=== PATIENT | female | born 1955 | race Caucasian/White ===

== ENCOUNTER 2025-03-11 08:02 | Outpatient (CLI) | payer OTHER, SELFPAY ==
--- NOTE | 2025-03-11 08:05 | US_ITS ---
PROCEDURE: THORACENTESIS W US 03/11/2025 REASON FOR EXAM: Right pleural effusion. Diagnostic thoracentesis. TECHNIQUE: THORACENTESIS W US COMPARISON: No relevant prior. FINDINGS: Small right apparently septated pleural effusion. Informed consent was obtained. The patient was prepped and draped in the usual sterile fashion. Anesthetic: Lidocaine 2% was utilized for local anesthesia. Catheter: 5F, 10 cm in length [id number] Centesis Catheter. Drained fluid: 2 mL. Fluid color: Red. Fluid clarity: Bloody. Fluid disposition: Sent to laboratory. US/Thoracentesis W US IMPRESSION: Successful diagnostic right thoracentesis of a scant amount of bloody fluid sen t to the laboratory for testing. Reading Location: [place] [id number]
--- NOTE | 2025-03-11 08:43 | FLU_PTH ---
PATIENT: GAUDENCIO GUZMAN LOC: [facility]#:[id number] AGE/SX: 69/F ROOM: RE03/11/[address]: Dr. Keegan Jerome MD : 1955 BED: DIS: 03/11/2025 SPEC #: [id number] RECD: 03/11/25 09:24 STATUS: ENT REQ #: [id number] ALEXANDRO: 03/11/25 08:[address]: Keegan Jerome V DEPT: CYTOLOGY RECD BY: Rosie Cheung ENTERED: 03/11/25 13:52 SP TYPE: Fluid OTHR DR: KHUSHI Koroma Tissues: Pleural fluid, NOS Procedures: Special Stain Group II Surgery Specimen Level IV Cytospin Fluid
[2025-03-11] MEDS: Lidocaine 2% (20 ml mdv) 20 ML Vial INFILT (08:48)
--- NOTE | 2025-03-11 09:10 | RAD_ITS ---
PROCEDURE: CHEST INSP/EXP 2 VIEW N/A REASON FOR EXAM: POST THORACENTESIS TECHNIQUE: Procedure Code: [id number] Modality: DX Procedure: CHEST INSP/EXP 2 VIEW COMPARISON: Ultrasound dated 03/11/2025 FINDINGS: AP inspiration and expiration chest images show no signs of pneumothorax following right thoracentesis. Patchy infiltrates are noted in the right lower lobe. Blunting of the right lateral costophrenic angle. Heart and mediastinum are normal. Aorta is atherosclerotic and tortuous. RAD/Chest Insp/Exp 2 View IMPRESSION: 1. No evidence of pneumothorax following right thoracentesis. Reading Location: [place] [id number]
[2025-03-11 09:37] VITALS: BP 182/85; PULSE 93; RESP 18; O2SAT 96
[2025-03-11 09:38] VITALS: BP 166/90; PULSE 91; RESP 18; O2SAT 96
== END 2025-03-11 23:59 | disposition home or self-care (01) ==
LOC: US 08:04
PROVIDERS: PCP Physician Assistant; Referring Provider Internal Medicine Pulmonary Disease; Visit Provider Internal Medicine Pulmonary Disease
DX: J90 Pleural effusion, not elsewhere classified (principal)
CPT/HCPCS: 32555; 71046; 87070; 87075; 87205; 88108; 88305; 88313